=== PATIENT | female | born 1960 | race Caucasian/White ===

== ENCOUNTER 2017-06-27 11:02 | Observation (INO) | payer OTHER ==
--- NOTE | 2017-06-27 11:24 | CPEKG ---
Heart Rate: 69 RR Interval: 870 P-R Interval: 180 QRSD Interval: 82 QT Interval: 372 QTC Interval: 399 P Baggs: 40 QRS Baggs: -10 EKG Severity - ABNORMAL ECG - EKG Impression: SINUS RHYTHM EKG Impression: VENTRICULAR PREMATURE COMPLEX EKG Impression: LOW VOLTAGE THROUGHOUT EKG Impression: BORDERLINE R WAVE PROGRESSION, ANTERIOR LEADS EKG Impression: BORDERLINE T ABNORMALITIES, ANT-LAT LEADS Electronically Signed By: Benedicto Deleon 27-Jun-2017 13:19:33
--- NOTE | 2017-06-27 13:16 | EDPHY ---
H & P Stated Complaint: has been ill increasing dizzyness/balance issues began yesterday Time Seen by Provider: 06/27/17 12:46 HPI/ROS: CHIEF COMPLAINT: Slurred speech, fall HISTORY OF PRESENT ILLNESS: The patient is a 56-year-old female a history of dilated cardiomyopathy, pacemaker defibrillator and hypothyroidism who comes to the emergency department after what sounds like a TIA this morning. Around 9: 00 a.m. her family noticed that she had slightly slurred speech. The patient stated that she was trying to reach her emails and noticed her head was bobbing palpitations. No nausea vomiting. She tried to get up from the stool and had a slight stumble but was able to walk to the counter. When she came back to sit down she states that felt like her legs stopped working and she fell next to the chair. Her states that she occasionally stumbles because of neuropathy in her feet so he did not think anything of initially. She denies recent fevers or illness. REVIEW OF SYSTEMS: Constitutional: denies: chills, fever, recent illness, recent injury EENTM: denies: blurred vision, double vision, nose congestion Respiratory: denies: cough, shortness of breath Cardiac: denies: chest pain, irregular heart rate, lightheadedness, palpitations Gastrointestinal/Abdominal: denies: abdominal pain, diarrhea, nausea, vomiting, blood streaked stools Genitourinary: denies: dysuria, frequency, hematuria, pain Musculoskeletal: See HPI Skin: denies: lesions, rash, jaundice, bruising Neurological: denies: headache, numbness, paresthesia, tingling, dizziness, weakness Hematologic/Lymphatic: denies: blood clots, easy bleeding, easy bruising Immunologic/allergic: denies: HIV/AIDS, transplant EXAM: GENERAL: Well-appearing, well-nourished and in no acute distress. HEAD: Atraumatic, normocephalic. EYES: Pupils equal round and reactive to light, extraocular movements intact, sclera anicteric, conjunctiva are normal. ENT: TMs normal, nares patent, oropharynx clear without exudates. Moist mucous membranes. NECK: Normal range of motion, supple without lymphadenopathy or JVD. LUNGS: Breath sounds clear to auscultation bilaterally and equal. No wheezes rales or rhonchi. HEART: Regular rate and rhythm without murmurs, rubs or gallops. ABDOMEN: Soft, nontender, normoactive bowel sounds. No guarding, no rebound. No masses appreciated. BACK: No CVA tenderness, no spinal tenderness, step-offs or deformities EXTREMITIES: Normal range of motion, no pitting or edema. No clubbing or cyanosis. NEUROLOGICAL: NIH stroke score 0. Cranial nerves II through XII grossly intact. Normal speech, normal gait. 5/5 strength, normal movement in all extremities, normal sensation PSYCH: Normal mood, normal affect. SKIN: Warm, dry, normal turgor, no visible rashes or lesions. Source: Patient Exam Limitations: No limitations - Personal History LMP (Females 10-55): Post Menopausal Current Tetanus/Diphtheria Vaccine: Unsure - Medical/Surgical History Hx Asthma: No Hx Chronic Respiratory Disease: No Hx Diabetes: No Hx Cardiac Disease: Yes Hx Renal Disease: No Hx Cirrhosis: No Hx Alcoholism: No Hx HIV/AIDS: No Hx Splenectomy or Spleen Trauma: No Other PMH: pacemaker/defib/cardiomyopathy/hypothyroid - Family History Significant Family History: No pertinent family hx - Social History Smoking Status: Never smoked Alcohol Use: Sober Drug Use: None Constitutional: Initial Vital Signs Temperature (C) 36.4 C 06/27/17 11:11 Heart Rate 74 06/27/17 11:11 Respiratory Rate 20 06/27/17 11:11 Blood Pressure 103/73 06/27/17 11:11 O2 Sat (%) 97 06/27/17 11:11 O2 Delivery Mode Room Air Allergies/Adverse Reactions: No Known Allergies Allergy (Unverified 06/27/17 11:08) Home Medications: Medication Instructions Recorded Carvedilol 06/27/17 Cipralex 06/27/17 Dayquill 06/27/17 Dormonoct 06/27/17 Levothyroxine 06/27/17 Mucinex 06/27/17 PERINDOPRIL ERBUMINE 06/27/17 Spironolactone 06/27/17 Departure - Departure Referrals: NONE *PRIMARY CARE P,. [Primary Care Provider] - As per Instructions
--- NOTE | 2017-06-27 13:18 | EDPHY ---
H & P Stated Complaint: has been ill increasing dizzyness/balance issues began yesterday Time Seen by Provider: 06/27/17 12:46 HPI/ROS: CHIEF COMPLAINT: Slurred speech, fall HISTORY OF PRESENT ILLNESS: The patient is a 56-year-old female who comes to the emergency department complaining of a fall this morning and slurred speech. She has a history of dilated cardiomyopathy with a pacemaker/defibrillator, also hypothyroidism. Today around 9:00 a.m. her family noticed that she has slightly slurred speech. She also noticed that her head was bobbing while she was trying to read her emails. She got up to go to the kitchen and had a slight stumble was able to recover. On the way back to her chair however she lost her balance and fell to the right. She states that it felt like her legs were not working. Her symptoms resolved before 10:00 a.m.. It took her family several hours to convince her to come here. No recent fevers or illness. She denies chest pain or palpitations. She denies shortness of breath. No nausea vomiting. REVIEW OF SYSTEMS: Constitutional: denies: chills, fever, recent illness, recent injury EENTM: denies: blurred vision, double vision, nose congestion Respiratory: denies: cough, shortness of breath Cardiac: denies: chest pain, irregular heart rate, lightheadedness, palpitations Gastrointestinal/Abdominal: denies: abdominal pain, diarrhea, nausea, vomiting, blood streaked stools Genitourinary: denies: dysuria, frequency, hematuria, pain Musculoskeletal: denies: joint pain, muscle pain Skin: denies: lesions, rash, jaundice, bruising Neurological: See HPI denies: headache, Hematologic/Lymphatic: denies: blood clots, easy bleeding, easy bruising Immunologic/allergic: denies: HIV/AIDS, transplant EXAM: GENERAL: Well-appearing, well-nourished and in no acute distress. HEAD: Atraumatic, normocephalic. EYES: Pupils equal round and reactive to light, extraocular movements intact, sclera anicteric, conjunctiva are normal. ENT: TMs normal, nares patent, oropharynx clear without exudates. Moist mucous membranes. NECK: Normal range of motion, supple without lymphadenopathy or JVD. LUNGS: Breath sounds clear to auscultation bilaterally and equal. No wheezes rales or rhonchi. HEART: Regular rate and rhythm without murmurs, rubs or gallops. ABDOMEN: Soft, nontender, normoactive bowel sounds. No guarding, no rebound. No masses appreciated. BACK: No CVA tenderness, no spinal tenderness, step-offs or deformities EXTREMITIES: NIH stroke score 0 Normal range of motion, no pitting or edema. No clubbing or cyanosis. NEUROLOGICAL: Cranial nerves II through XII grossly intact. Normal speech, normal gait. 5/5 strength, normal movement in all extremities, normal sensation PSYCH: Normal mood, normal affect. SKIN: Warm, dry, normal turgor, no visible rashes or lesions. Source: Patient Exam Limitations: No limitations - Personal History LMP (Females 10-55): Post Menopausal Current Tetanus/Diphtheria Vaccine: Unsure - Medical/Surgical History Hx Asthma: No Hx Chronic Respiratory Disease: No Hx Diabetes: No Hx Cardiac Disease: Yes Hx Renal Disease: No Hx Cirrhosis: No Hx Alcoholism: No Hx HIV/AIDS: No Hx Splenectomy or Spleen Trauma: No Other PMH: pacemaker/defib/cardiomyopathy/hypothyroid - Social History Smoking Status: Never smoked Alcohol Use: Sober Drug Use: None Constitutional: Initial Vital Signs Temperature (C) 36.4 C 06/27/17 11:11 Heart Rate 74 06/27/17 11:11 Respiratory Rate 20 06/27/17 11:11 Blood Pressure 103/73 06/27/17 11:11 O2 Sat (%) 97 06/27/17 11:11 O2 Delivery Mode Room Air Allergies/Adverse Reactions: No Known Allergies Allergy (Verified 06/27/17 17:19) Home Medications: Medication Instructions Recorded Carvedilol [Coreg (*)] 25 mg PO DAILY AT 6AM 06/27/17 Carvedilol [Coreg] 12.5 mg PO HS 06/27/17 Dextromethorphn/Acetaminoph/Cp 1 each PO DAILY 06/27/17 [Flu Hbp Tablet] Dormonoct 2 mg PO HS 06/27/17 Escitalopram Oxalate [Lexapro] 10 mg PO DAILY 06/27/17 Estradiol/Norethindrone Acet 1 each PO DAILY 06/27/17 [Activella 1 mg-0.5 mg Tablet] Fluticasone Nasal [Flonase Nasal 1 sprays NASAL DAILY 06/27/17 [place] (RX)] Levothyroxine [Synthroid 75 mcg 75 mcg PO DAILY06 06/27/17 (*)] Perindopril Erbumine [PERINDOPRIL 2 mg PO DAILY AT 6AM 06/27/17 ERBUMINE] Spironolactone [Aldactone 25 MG 25 mg PO DAILY 06/27/17 (*)] guaiFENesin [Mucinex 600 MG (*)] 2,400 mg PO BID 06/27/17 Medical Decision Making - Diagnostics EKG Interpretation: An EKG obtained and was read and documented in trace view. Please see trace view for full reading and report. Sinus rhythm, PVC Imaging: Discussed imaging studies w/ house calls nurse practitioner Radiologist Procedures: The right femoral vein stick with ultrasound guidance. Patient tolerated well. ED Course/Re-evaluation: 3:10 p.m. the CBC was not sufficient. I performed a femoral stick for more blood and sent to lab. We discussed the CT and lab results. I recommended admission. The patient is planning to leave tomorrow for [place] to visit family. They will postpone the trip. Differential Diagnosis: Partial list of the Differential diagnosis considered include but were not limited to; TIA, electrolyte abnormality, anemia, and although unlikely based on the history and physical exam, I also considered acute coronary disease, infection, arrhythmia. - Data Points Laboratory Results: Laboratory Results 06/27/17 15:03 06/27/17 13:30 Medications Given: Aspirin (Aspirin) 325 mg PO DAILY JEREMIAH Stop: 12/24/17 15:14 Last Admin: 06/28/17 12:37 Dose: Not Given Carvedilol (Coreg) 25 mg PO DAILY AT 6AM JEREMIAH Stop: 12/25/17 05:59 Last Admin: 06/28/17 06:30 Dose: 25 mg Carvedilol (Coreg) 12.5 mg PO HS JEREMIAH Stop: 12/24/17 20:59 Last Admin: 06/27/17 20:53 Dose: 12.5 mg Escitalopram Oxalate (Lexapro) 10 mg PO DAILY JEREMIAH Stop: 12/25/17 08:59 Last Admin: 06/28/17 12:33 Dose: 10 mg Fluticasone Propionate (Flonase Nasal [place]) 1 sprays NS DAILY JEREMIAH Stop: 12/25/17 08:59 Last Admin: 06/28/17 12:33 Dose: Not Given Guaifenesin (Mucinex) 1,200 mg PO BID JEREMIAH Stop: 12/24/17 20:59 Last Admin: 06/28/17 12:41 Dose: Not Given Levothyroxine Sodium (Synthroid) 75 mcg PO DAILY06 JEREMIAH Stop: 12/25/17 05:59 Last Admin: 06/28/17 06:30 Dose: 75 mcg Miscellaneous Medication (Dextromethorphn/Acetaminoph/Cp [Flu Hbp Tablet]) 1 each PO DAILY JEREMIAH Stop: 12/25/17 08:59 Last Admin: 06/28/17 12:37 Dose: Not Given Miscellaneous Medication (Dormonoct) 2 mg PO HS JEREMIAH Stop: 12/24/17 20:59 Last Admin: 06/27/17 20:57 Dose: 2 mg Miscellaneous Medication (Estradiol/Norethindrone Acet [Activella 1 Mg-0.5 Mg Tablet]) 1 each PO DAILY JEREMIAH Stop: 12/25/17 08:59 Last Admin: 06/28/17 12:34 Dose: 1 tab Miscellaneous Medication (Perindopril Erbumine [Perindopril Erbumine]) 2 mg PO DAILY AT 6AM JEREMIAH Stop: 12/25/17 05:59 Last Admin: 06/28/17 07:41 Dose: Not Given Spironolactone (Aldactone) 25 mg PO DAILY JEREMIAH Stop: 12/25/17 08:59 Last Admin: 06/28/17 12:45 Dose: Not Given Discontinued Medications Sodium Chloride (Ns) 1,000 mls @ 3,000 mls/hr IV ONCE ONE Stop: 06/28/17 15:32 Last Admin: 06/28/17 15:49 Dose: 1,000 mls Departure - Departure Disposition: [facility] Acute Clinical Impression: TIA (transient ischemic attack) Qualifiers: Transient cerebral ischemia type: unspecified Qualified Code(s): G45.9 - Transient cerebral ischemic attack, unspecified Condition: Fair
[2017-06-27 13:45] LABS: ANION GAP 8 mEq/L (8-16); CARBON DIOXIDE 22 mEq/l (22-31); CHLORIDE 107 mEq/L (97-110); CREATININE 0.9 mg/dL (0.6-1.0); GLOMERULAR FILTRATION RATE > 60; GLUCOSE 77 mg/dL (70-100); POTASSIUM 4.9 mEq/L (3.5-5.2); SODIUM 137 mEq/L (134-144)
[2017-06-27 13:56] LABS: TROPONIN I < 0.012 ng/mL (0.000-0.034)
[2017-06-27] MEDS ORDERED: ONDANSETRON 4 MG/2 ML VIAL IVP PRN (15:08)
[2017-06-27] MEDS ORDERED: ONDANSETRON DISINTEGRATING 4 MG TAB PO PRN (15:08)
[2017-06-27] MEDS ORDERED: ACETAMINOPHEN 325 MG TAB PO PRN (15:08)
[2017-06-27 15:14] LABS: % IMMATURE GRANULYOCYTES 0.1 % (0.0-1.1); ABSOLUTE IMMATURE GRANULOCYTES 0.01 10^3/uL (0.00-0.10); ADD DIFF? NO; ADD MORPH? NO; ADD SCAN? NO; ATYPICAL LYMPHOCYTE FLAG 10 (0-99); FRAGMENT RBC FLAG 0 (0-99); HEMATOCRIT 38.7 % (38.0-47.0); HEMOGLOBIN 13.1 g/dL (12.6-16.3); LEFT SHIFT FLG 0 (0-99); LIPEMIA HEMOLYSIS FLAG 90 (0-99); MEAN CELL HEMOGLOBIN 30.9 pg (27.9-34.1); MEAN CELL HEMOGLOBIN CONCENTR. 33.9 g/dL (32.4-36.7); MEAN CELL VOLUME 91.3 fL (81.5-99.8); MEAN PLATELET VOLUME 9.5 fL (8.7-11.7); PLATELET CLUMPS FLAG 90 (0-99); PLATELET COUNT 237 10^3/uL (150-400); RED BLOOD CELL COUNT 4.24 10^6/uL (4.18-5.33); RED CELL DISTRIBUTION WIDTH 12.9 % (11.5-15.2)
[2017-06-27] MEDS: ASPIRIN 325 MG TAB PO SCH (15:59)
--- NOTE | 2017-06-27 19:07 | PDGENHP ---
History and Physical - Chief Complaint acute fall - History of Present Illness 56-year-old female presenting with acute fall from the standing position onto a soft couch with onset of symptoms at 9:00 a.m. on the morning of presentation. She had associated dysarthria ataxia and confusion with duration of approximately 30 minutes. These symptoms began abruptly without any identifiable provocative factors. Patient reports she had otherwise gone to bed without any symptoms on the evening prior. She is unable to fully recall the events of this morning for approximately 2 hours, and her son is able to provide these additional details. Per her son, she was visibly bobbing her head but was not demonstrating any focal weakness. She did fall towards the right side. They have occurred in the context of approximately 2 weeks of flu-like symptoms after traveling to [place] from [facility]. She has felt somewhat short of breath with exertion for the last 2 days has been somewhat more lethargic. History Information - Allergies/Home Medication List Allergies/Adverse Reactions: No Known Allergies Allergy (Verified 06/27/17 17:19) Home Medications: Carvedilol [Coreg (*)] 25 mg PO DAILY AT 6AM 06/27/17 [Last Taken 06/27/17] Carvedilol [Coreg] 12.5 mg PO HS 06/27/17 [Last Taken 06/26/17] Dextromethorphn/Acetaminoph/Cp [Flu Hbp Tablet] 1 each PO DAILY 06/27/17 [Last Taken 06/25/17] Dormonoct 2 mg PO HS 06/27/17 [Last Taken 06/26/17] Escitalopram Oxalate [Lexapro] 10 mg PO DAILY 06/27/17 [Last Taken 06/27/17] Estradiol/Norethindrone Acet [Activella 1 mg-0.5 mg Tablet] 1 each PO DAILY [Last Taken 06/27/17] Fluticasone Nasal [Flonase Nasal [place] (RX)] 1 sprays NASAL DAILY 06/27/17 [ Last Taken 06/27/17] Levothyroxine [Synthroid 75 mcg (*)] 75 mcg PO DAILY06 06/27/17 [Last Taken ] Perindopril Erbumine [PERINDOPRIL ERBUMINE] 2 mg PO DAILY AT 6AM 06/27/17 [Last Taken 06/27/17] Spironolactone [Aldactone 25 MG (*)] 25 mg PO DAILY 06/27/17 [Last Taken ] guaiFENesin [Mucinex 600 MG (*)] 2,400 mg PO BID 06/27/17 [Last Taken 06/25/17] I have personally reviewed and updated: family history, medical history, social history, surgical history - Past Medical History Additional medical history: Nonischemic cardiomyopathy with last ejection fraction around 40%. Hypothyroidism. Neuropathy - Surgical History Additional surgical history: AICD/permanent pacemaker placed in 2004 - Family History Additional family history: son was ill with flu-like illness approximately 2 weeks ago, mother and aunt both with cardiomyopathy - Social History Smoking Status: Never smoked Alcohol Use: Sober Drug Use: None Additional social history: no tobacco, had 1 glass of wine on the evening prior to presentation Review of Systems Review of Systems: ROS: 10pt was reviewed & negative except for what was stated in HPI & below Constitutional: Reports: recent illness, weakness Respiratory: Reports: shortness of breath Neurological: Reports: other ( dysarthria, ataxia, fall) Physical Exam Physical Exam: Temp Pulse Resp BP Pulse Ox 36.6 C 62 16 104/64 99 06/27/17 17:34 06/27/17 17:34 06/27/17 17:34 06/27/17 17:34 06/27/17 17:34 Constitutional: no apparent distress, appears nourished, not in pain, obese Eyes: PERRL, anicteric sclera, EOMI Ears, Nose, Mouth, Throat: moist mucous membranes, hearing normal, ears appear normal, no oral mucosal ulcers Cardiovascular: regular rate and rhythym, no murmur, rub, or gallop, No edema Respiratory: no respiratory distress, no rales or rhonchi, clear to auscultation Gastrointestinal: normoactive bowel sounds, soft, non-tender abdomen, no palpable masses Genitourinary: no bladder fullness, no bladder tenderness Skin: warm, normal color, no rashes or abrasions, no fluctuance, no induration, No mottled Neurologic: AAOx3, sensation intact bilaterally, CN II-XII Intact, No weakness, No facial droop Psychiatric: interacting appropriately, not anxious, not encephalopathic, thought process linear Lab Data & Imaging Review 06/27/17 15:03 06/27/17 13:30 WBC 7.10 10^3/uL (3.80-9.50) 06/27/17 15:03 RBC 4.24 10^6/uL (4.18-5.33) 06/27/17 15:03 Hgb 13.1 g/dL (12.6-16.3) 06/27/17 15:03 Hct 38.7 % (38.0-47.0) 06/27/17 15:03 MCV 91.3 fL (81.5-99.8) 06/27/17 15:03 MCH 30.9 pg (27.9-34.1) 06/27/17 15:03 MCHC 33.9 g/dL (32.4-36.7) 06/27/17 15:03 RDW 12.9 % (11.5-15.2) 06/27/17 15:03 Plt Count 237 10^3/uL (150-400) 06/27/17 15:03 MPV 9.5 fL (8.7-11.7) 06/27/17 15:03 Neut % (Auto) 55.8 % (39.3-74.2) 06/27/17 15:03 Lymph % (Auto) 35.2 % (15.0-45.0) 06/27/17 15:03 [place] % (Auto) 6.5 % (4.5-13.0) 06/27/17 15:03 Eos % (Auto) 2.0 % (0.6-7.6) 06/27/17 15:03 Baso % (Auto) 0.4 % (0.3-1.7) 06/27/17 15:03 Nucleat RBC Rel Count 0.0 % (0.0-0.2) 06/27/17 15:03 Absolute Neuts (auto) 3.96 10^3/uL (1.70-6.50) 06/27/17 15:03 Absolute Lymphs (auto) 2.50 10^3/uL (1.00-3.00) 06/27/17 15:03 Absolute Monos (auto) 0.46 10^3/uL (0.30-0.80) 06/27/17 15:03 Absolute Eos (auto) 0.14 10^3/uL (0.03-0.40) 06/27/17 15:03 Absolute Basos (auto) 0.03 10^3/uL (0.02-0.10) 06/27/17 15:03 Absolute Nucleated RBC 0.00 10^3/uL (0-0.01) 06/27/17 15:03 Immature Gran % 0.1 % (0.0-1.1) 06/27/17 15:03 Immature Gran # 0.01 10^3/uL (0.00-0.10) 06/27/17 15:03 Sodium 137 mEq/L (134-144) 06/27/17 13:30 Potassium 4.9 mEq/L (3.5-5.2) 06/27/17 13:30 Chloride 107 mEq/L (97-110) 06/27/17 13:30 Carbon Dioxide 22 mEq/l (22-31) 06/27/17 13:30 Anion Gap 8 mEq/L (8-16) 06/27/17 13:30 BUN 17 mg/dL (7-23) 06/27/17 13:30 Creatinine 0.9 mg/dL (0.6-1.0) 06/27/17 13:30 Estimated GFR > 60 06/27/17 13:30 Glucose 77 mg/dL (70-100) 06/27/17 13:30 Calcium 9.0 mg/dL (8.5-10.4) 06/27/17 13:30 Troponin I < 0.012 ng/mL (0.000-0.034) 06/27/17 13:30 TSH 2.200 uIU/mL (0.465-4.680) 06/27/17 13:30 Free T4 0.94 ng/dL (0.59-2.19) 06/27/17 13:30 Visualized and Interpreted EKG results: Yes EKG Interpretation: Positive for: other ( normal sinus rhythm, PVC, Q-wave in lead 3, poor R-wave progression in leads V2 and V3) Assessment & Plan Assessment: 56-year-old female presents with acute dysarthria and ataxia, concerning for TIA Plan: 1. Possible TIA. Acute, new problem this provider, further workup indicated. Transient neurologic symptoms including dysarthria, ataxia, confusion in the setting of cardiomyopathy but no known history of atrial fibrillation -interrogate [employer] device to eval for AFib -continue monitor on telemetry -send D-dimer to rule out pulmonary embolism in the setting of patient he takes estrogen replacement - patient's device is not MRI compatible, get CT angio of head to evaluate for any vascular occlusion, ultrasound of the neck demonstrates no stenosis - repeat echocardiogram to evaluate for worsening of ejection fraction, valvular abnormalities which would potentiate AFib -get Neurology consultation in a.m. -administered full-dose aspirin, will most likely recommend aspirin 81 mg at discharge -get lipid and hemoglobin A1c 2. Nonischemic cardiomyopathy. Chronic, with chronic systolic congestive heart failure, no evidence of acute exacerbation -I suspect that patient's after mentioned symptoms are more likely related to recently cleared viral illness as opposed to overt CHF -continue on home medications Diet. Cardiac Prophylaxis. low risk patient, SCDs while above workup undertaken Code. Full Disposition. Anticipated discharge is 06/28/2017, pending further workup as outlined above. I have discussed patient's presentation with Dr. Benedicto Deleon, we both agree that the patient should have an expedited after mentioned workup secondary to her risk factors.
[2017-06-27] MEDS ORDERED: IOPAMIDOL (ISOVUE 370) 100 ML BTL IV ONE (19:27)
[2017-06-27] MEDS: guaiFENesin 600 MG TAB.ER PO SCH (20:55)
[2017-06-27] MEDS ORDERED: NON-FORMULARY NEW DRUG (Carvedilol [Coreg] 12.5 MG) PO SCH (21:00)
[2017-06-27] MEDS ORDERED: CARVEDILOL 25 MG TAB PO SCH (21:00)
[2017-06-27] MEDS ORDERED: [UNRECOGNIZED DRUG - OTHER] PO SCH (21:00)
[2017-06-28] MEDS ORDERED: LEVOTHYROXINE 75 MCG TAB PO SCH (06:00)
[2017-06-28] MEDS ORDERED: CARVEDILOL 25 MG TAB PO SCH (06:00)
[2017-06-28] MEDS ORDERED: PERINDOPRIL ERBUMINE PO SCH (06:00)
[2017-06-28 06:07] LABS: % IMMATURE GRANULYOCYTES 0.4 % (0.0-1.1); ABSOLUTE IMMATURE GRANULOCYTES 0.03 10^3/uL (0.00-0.10); ADD DIFF? NO; ADD MORPH? NO; ADD SCAN? NO; ATYPICAL LYMPHOCYTE FLAG 20 (0-99); FRAGMENT RBC FLAG 0 (0-99); HEMATOCRIT 40.8 % (38.0-47.0); HEMOGLOBIN 13.4 g/dL (12.6-16.3); LEFT SHIFT FLG 0 (0-99); LIPEMIA HEMOLYSIS FLAG 80 (0-99); MEAN CELL HEMOGLOBIN 30.1 pg (27.9-34.1); MEAN CELL HEMOGLOBIN CONCENTR. 32.8 g/dL (32.4-36.7); MEAN CELL VOLUME 91.7 fL (81.5-99.8); MEAN PLATELET VOLUME 9.6 fL (8.7-11.7); PLATELET CLUMPS FLAG 0 (0-99); PLATELET COUNT 246 10^3/uL (150-400); RED BLOOD CELL COUNT 4.45 10^6/uL (4.18-5.33); RED CELL DISTRIBUTION WIDTH 12.9 % (11.5-15.2)
[2017-06-28 06:25] LABS: ALANINE AMINOTRANSFERASE 32 IU/L (9-52); ALBUMIN 3.5 g/dL (3.5-5.0); ALKALINE PHOSPHATASE 53 IU/L (38-126); ANION GAP 8 mEq/L (8-16); ASPARTATE AMINOTRANSFERASE 16 IU/L (14-46); BILIRUBIN,TOTAL 0.5 mg/dL (0.1-1.4); CALCIUM 9.2 mg/dL (8.5-10.4); CARBON DIOXIDE 22 mEq/l (22-31); CHLORIDE 108 mEq/L (97-110); CHOLESTEROL 193 mg/dL (140-220); CHOLESTEROL/HDL RATIO 3.57 RATIO (1.00-4.44); CREATININE 0.9 mg/dL (0.6-1.0); GLOMERULAR FILTRATION RATE > 60; GLUCOSE 74 mg/dL (70-100); HIGH DENSITY LIPOPROTEIN 54 mg/dL (40-85); LOW DENSITY LIPOPROTEIN 124 mg/dL (80-100); MAGNESIUM 2.1 mg/dL (1.6-2.3); NON-HIGH DENSITY LIPOPROTEIN 139 mg/dL (90-129); POTASSIUM 4.4 mEq/L (3.5-5.2); SODIUM 138 mEq/L (134-144); TOTAL PROTEIN 6.5 g/dL (6.3-8.2); TRIGLYCERIDE 77 mg/dL (35-135); VERY LOW DENSITY LIPOPROTEINS 15 mg/dL (8-25)
[2017-06-28 06:32] LABS: TROPONIN I < 0.012 ng/mL (0.000-0.034)
[2017-06-28 08:08] VITALS: TEMP 98.2
[2017-06-28] MEDS ORDERED: FLUTICASONE NASAL 120 SPRAYS/16 GM MDI NS SCH (09:00)
[2017-06-28] MEDS ORDERED: NORETHINDRONE ACET PO SCH (09:00)
[2017-06-28] MEDS ORDERED: ESCITALOPRAM OXALATE 10 MG TAB PO SCH (09:00)
[2017-06-28] MEDS ORDERED: ESTRADIOL PO SCH (09:00)
[2017-06-28] MEDS ORDERED: [UNRECOGNIZED DRUG - OTHER] PO SCH (09:00)
[2017-06-28] MEDS ORDERED: SPIRONOLACTONE 25 MG TAB PO SCH (09:00)
[2017-06-28 10:11] LABS: HEMOGLOBIN A1C 5.7 % (4.0-6.0)
--- NOTE | 2017-06-28 10:25 | NEUROPROG ---
Assessment: HOSPITAL NEUROLOGY CONSULT REQUESTING: David Zelaya MD REASON: possible TIA HPI: 56 year old right-handed woman visiting from [facility]. She has a history of nonischemic cardiomyopathy, PPM, hypothyroidism and chronic insomnia. She had been ill with flu-like URI that was circulating among family in the 2 weeks prior to presentation. She was brought to our ED by family yesterday due to concern for a stroke/TIA. Patient had been taking DXM containing cold medicine intermittently, but not the day prior to presentation. She drank a glass of wine the night prior to presentation and took loprazolam 2mg (long-acting benzo not available in [place]). She is amnestic of events upon waking. Family had reported the patient acting confused, slurring her words and stumbling around. She had a fall onto a soft couch. Her head was apparently bobbing when she was trying to walk around. Symptoms had resolved by the time she got to the ED. No evidence of focal lateralizing weakness. No endorsement of sensory loss or visual disturbance. No prior history of stroke/TIA. ROS: As per the HPI, otherwise a complete 12 point ROS was performed and is negative ALLERGIES AND MEDS: As recorded in the EMR - reviewed and reconciled PFSH: As per the intake H&P by Dr. Zelaya from yesterday EXAM: VS reviewed in EMR GEN: WDWN laying in NAD HEENT: NCAT, sclera anicteric, conjunctiva not injected, MMM, oropharynx clear, no scalp tenderness NECK: supple, nontender, no meningismus CV: RRR s1 s2 wo m/r/c/g. Carotid pulses 2+ wo bruit NEURO: MS: awake, alert, oriented to all spheres. Speech nondysarthric. No language disturbance. Follows commands. Attends to both sides. Recent/remote memory grossly intact. Mood euthymic. Good fund of knowledge. CN: pupils 4mm round and reactive. Fundi with sharp discs. VFF. Primary gaze centered. Full ocular motility. Facial sensation preserved. Face symmetric. Hearing grossly intact to finger rub. Palatoglossal movements intact. Shoulder shrug and head turn strong. MOTOR: normal bulk/tone. No adventitial movements. Full power throughout. SENSORY: intact to all modalities throughout. No extinction. COORD: no ataxia FN/HS. Konstantin preserved. REFLEX: plantars down. No clonus. DTRS 2/4. GAIT: deferred to PT safety eval DATA REVIEW: Labs reviewed in EMR PERSONALLY INTERPRETED RESULTS AND DATA: CT head wo - small rounded hypodensity in the right parietal white matter, likely chronic microvascular in origin. IMPRESSION AND RECOMMENDATIONS: // ATAXIA - resolved // DYSARTHRIA - resolved // AMNESIA - resolved // CONFUSION - resolved Patient with above noted symptoms. I am more concerned her symptoms were related to the toxic effects of her long-acting benzo, in conjunction with her recovering from URI, +/- alcohol consumption. The amnesia is particularly compelling for this, as is the timing of symptoms in the morning with spontaneous resolution. Less likely a posterior circulation TIA/stroke. Will evaluate by obtaining CTA head/neck (carotid U/S done, but does not eval posterior circulation). I do suggest she be maintained on ASA 81mg daily going forward. I also recommend abstinence from daily benzo use. Maintain normotension. Check LDL - goal < 100 given possibility of TIA A1c goal < 6.5 Cardiac screening per primary team PT/OT/FARM LOAN REPRESENTATIVE consults Stroke education Cannot have MRI due to PPM Objective: Vital Signs Temp Pulse Resp BP Pulse Ox 36.8 C 64 14 100/69 97 06/28/17 08:00 06/28/17 08:00 06/28/17 08:00 06/28/17 08:00 06/28/17 08:00 Laboratory Results 06/28/17 04:43 06/28/17 04:43 06/27/17 06/28/17 06/29/17 05:59 05:59 05:59 Intake Total 1200 Output Total 1800 Balance -600 Allergies/Adverse Reactions: No Known Allergies Allergy (Verified 06/27/17 17:19)
[2017-06-28] MEDS ORDERED: IOPAMIDOL (ISOVUE 370) 100 ML BTL IV ONE (11:36)
[2017-06-28] MEDS: ASPIRIN 325 MG TAB PO SCH (12:37)
[2017-06-28] MEDS: guaiFENesin 600 MG TAB.ER PO SCH (12:41)
[2017-06-28] MEDS ORDERED: NS 1,000 ML IV ONE (15:13)
[2017-06-28 15:32] VITALS: PULSE 84; RESP 22; O2SAT 95
--- NOTE | 2017-06-28 16:04 | ECHO ---
[email or web address] [address] [address] Main: [phone] Fax: Transthoracic Echocardiogram Name: FAN STALLINGS MR#: [id number] Study Date: 06/28/2017 Study Time: 11:07 AM Date of : 1960 Age: 56 year(s) Height: 157.5 cm (62 in.) Weight: 84.82 kg (187 lb.) BSA: 1.86 m2 Gender: Female Examination: Echo Indication: TIA/Hx: Cardiomyopathy/Pacer Image Quality: Contrast: Requested by: David Zelaya BP: 114 mmHg/71 mmHg Heart Rate: Rhythm: Indication: TIA/Hx: Cardiomyopathy/Pacer Procedure Staff Ordering Physician: BRENNAN Blender / Cook: Briana Calvin Reading Physician: Jadiel Oneill Conclusions: ? Mildly to moderately reduced systolic funtion (EF 41 %). ? There is a pacemaker lead noted in the right ventricle. ? An agitated saline study was performed and was negative for intracardiac shunting. ? Mild mitral valve regurgitation is present. ? The aortic valve is tri-leaflet and functions normally. Measurements: Chambers Valvular Assessment AV/MV Valvular Assessment TV/PV Normal Normal Normal Name Value Range Name Value Range Name Value Range Ao Ciara (MM): 2.8 cm (2.2 cm-3.7 AV meanP mmHg ( - ) TR Vmax: 2.20 mm/s ( - ) cm) MV E Vmax: 1.13 cm/s ( - ) TR PGmax: 19 mmHg ( - ) IVSd (2D): 0.5 cm (0.6 cm-1.1 MV A Vmax: 0.42 cm/s ( - ) syst. PAP: 24 mmHg ( - ) cm) MV E/A: 2.69 ( - ) LVDd (2D): 5.4 cm (3.9 cm-5.3 cm) LVDs (2D): 4.4 cm (2.1 cm-4 cm) LVPWd (2D): 0.6 cm ( - ) LVOTd 1.9 cm 1.9 cm mm LVEF (MOD4): 41 % (>=55 %) Visual EF: 40 Continued Measurements: Chambers Valvular Assessment AV/MV Valvular Assessment TV/PV Name Value Name Value Name Value LA Area: 15.8 cm? MV E/E' Septal: 18.40 CVP (est.): 5 LA Volume: 36 ml MV E/E' Lateral: 11.30 LA Volume Index: 19.4 ml/m? Patient: FAN STALLINGS Study Date: 06/28/2017 Page 1 of 2 11:07 AM Findings: Left Ventricle: Left ventricle upper limits of normal. Mildly to moderately reduced systolic funtion (EF 41 %). Right Ventricle: Normal size right ventricle. There is a pacemaker lead noted in the right ventricle. Left Atrium: The left atrium is normal in size. An agitated saline study was performed and was negative for intracardiac shunting. Right Atrium: The right atrium is normal in size. An agitated saline study was performed and was negative for intracardiac shunting. Mitral Valve: The mitral valve is normal in appearance. Mild mitral valve regurgitation is present. Aortic Valve: The aortic valve is tri-leaflet and functions normally. Tricuspid Valve: The tricuspid valve appears normal. Mild tricuspid regurgitation is present. The pulmonary artery pressure is normal. Pulmonic Valve: The pulmonic valve is normal in appearance and function. Trivial pulmonic valve regurgitation. Great Vessels: Pericardium: No pericardial effusion. (No Signature Object) Patient: FAN STALLINGS Study Date: 06/28/2017 Page 2 of 2 11:07 AM [id number]
--- NOTE | 2017-06-28 16:15 | ASMTCMCOM ---
CM Note CM Note Notes: Pt visiting [facility], has son local. Neurology consulting. PT/OT rec home. LICENSED OCCUPATIONAL THERAPIST eval pending. CM to follow. Date Signed: 06/28/2017 04:14 PM Electronically Signed By:LOUISE Santillan
[2017-06-28 17:40] VITALS: BP 94/66
--- NOTE | 2017-06-29 16:11 | ASDISCHSUM ---
Discharge Information Plan Status:Home with No Needs Medically Cleared to Leave: Discharge Date:06/28/2017 06:53 PM CM D/C Disposition:Home, Routine, Self-Care ADT D/C Disposition:Home, Routine, Self-Care Projected Discharge Date:06/28/2017 06:53 PM Transportation at D/C: Discharge Delay Reason: Follow-Up Date:06/28/2017 06:53 PM Discharge Slot: Final Diagnosis: Placement Information Patient Contact Information Contact Name:ANGELA Relationship: Address: Work Phone: City: [facility] Phone: State/Zip Code: Email: Financial Information Financial Class:Commercial Primary Plan Desc:[employer] Primary Plan Number:[id number] Secondary Plan Desc: Secondary Plan Number: Assessment Information [facility] CM Progress Note CM Note CM Note Notes: Pt visiting from [facility], has son local. Neurology consulting. PT/OT rec home. PIECE MAKER alicia pending. CM to follow. Date Signed: 06/28/2017 04:14 PM Electronically Signed By:LOUISE Santillan Intervention Information
== END 2017-06-28 18:53 | disposition home or self-care (01) ==
LOC: F3N 17:07
PROVIDERS: ADMIT Surgery; ATTEND Surgery
DX: R29.818 Other symptoms and signs involving the nervous system (principal); R47.1 Dysarthria and anarthria; R27.8 Other lack of coordination; I42.0 Dilated cardiomyopathy; Z95.0 Presence of cardiac pacemaker; E03.9 Hypothyroidism, unspecified
CPT/HCPCS: 70450; 70496; 70498; 92523; 93005; 93306; 93880; 97161; 97165; 99285; G0378; Q9967